=== PATIENT | male | born 1985 | race Caucasian/White ===

== ENCOUNTER → 2024-02-18 14:09 | Outpatient (REF) | payer OTHER, SELFPAY ==
[2024-02-18 14:10] LABS: % Eosinophils 3.1 % (0-6); % Immature Granulocytes 0.2 % (0-0.5); % Lymphocytes 28.7 % (20.5-51.1); % Monocytes 14.3 % (1.7-9.3); % Neutrophils 52.7 % (42.2-75.2); Absolute Basophils 0.1 10^3/uL (0-0.2); Absolute Eosinophils 0.2 10^3/uL (0-0.7); Absolute Lymphocytes 1.8 10^3/uL (1.2-3.4); Absolute Monocytes 0.9 10^3/uL (0.1-0.6); Absolute Neutrophils 3.3 10^3/uL (1.4-6.5); Hematocrit 28.1 % (39.0-52.0); Mean Corp Hgb Conc. 28.5 g/dL (33.0-37.0); Mean Corpuscular Hgb 18.8 pg (27.0-31.0); Mean Platelet Volume 8.3 fL (7.4-10.4); Nucleated Red Blood Cells % 0 % (-); Platelet Count 441 10^3/uL (130-400); Red Blood Cell Count 4.26 10^6/uL (4.70-6.10); Red Cell Dist. Width 17.6 % (11.5-14.5); White Blood Cell Count 6.2 10^3/uL (4.8-10.8)
== END ==
LOC: OIDL 14:09
PROVIDERS: ATTENDING PHYSICIAN Nurse Practitioner Adult Health
DX: D50.9 Iron deficiency anemia, unspecified (principal)
CPT/HCPCS: 85025

== ENCOUNTER 2024-03-13 21:48 | Inpatient (IN) | payer OTHER, SELFPAY ==
[2024-03-13 11:27] VITALS: BP 153/93
[2024-03-13 12:00] LABS: % Basophils 0.4 % (0-2); % Immature Granulocytes 0.5 % (0-0.5); % Lymphocytes 8.2 % (20.5-51.1); % Monocytes 18.8 % (1.7-9.3); % Neutrophils 72.1 % (42.2-75.2); Absolute Immature Granulocytes 0.1 10^3/uL (0-0.05); Absolute Lymphocytes 0.8 10^3/uL (1.2-3.4); Absolute Monocytes 1.8 10^3/uL (0.1-0.6); Absolute Neutrophils 6.7 10^3/uL (1.4-6.5); Hematocrit 39.8 % (39.0-52.0); Hemoglobin 12.5 g/dL (13.0-18.0); Mean Corp Hgb Conc. 31.4 g/dL (33.0-37.0); Mean Corpuscular Hgb 22.8 pg (27.0-31.0); Mean Corpuscular Volume 72.5 fL (80.0-94.0); Mean Platelet Volume 8.5 fL (7.4-10.4); Nucleated Red Blood Cells % 0 % (-); Platelet Count 319 10^3/uL (130-400); Red Blood Cell Count 5.49 10^6/uL (4.70-6.10); Red Cell Dist. Width 26.8 % (11.5-14.5); White Blood Cell Count 9.3 10^3/uL (4.8-10.8)
[2024-03-13 12:11] LABS: ALT (SGPT) 31 U/L (0-50); AST (SGOT) 24 U/L (17-59); Alkaline Phosphatase 106 U/L (38-126); Blood Urea Nitrogen 11 mg/dl (9-20); Calcium 9.1 mg/dl (8.4-10.2); Carbon Dioxide 27 mmol/L (22-30); Chloride 88 mmol/L (98-107); Glucose 123 mg/dl (70-99); Potassium 4.3 mmol/L (3.5-5.1); Sodium 126 mmol/L (135-145); Total Bilirubin 0.8 mg/dl (0.2-1.3); Total Protein 7.3 g/dl (6.3-8.2); eGFR > 60.00
[2024-03-13 12:42] LABS: Normal RBC Morphology No
[2024-03-13 12:43] LABS: Anisocytosis 1+
[2024-03-13 12:44] LABS: Ovalocytes Slight; Tear Drop Red Blood Cells Slight; Vacuolated Segs 1+
--- NOTE | 2024-03-13 15:07 | ED.GENMED ---
History of Present Illness
General
Chief Complaint: Bowel Problem
Source: patient
Exam Limitations: none
Time Seen by Provider: 03/13/24 15:07
Nursing documentation reviewed up to this point in time: agreed with
Travel History
Have you had any contact with someone who has COVID-19?: No
Do you have any symptoms of coronavirus? Fever > 100 degrees, chills, cough, shortness of breath, sore throat, loss of taste or smell, muscle aches, or headache?: No
History of Present Illness
History of Present Illness:
38-year-old male with history of ulcerative colitis presents to the ER for evaluation. Patient reports for the past 5 days he has had watery diarrhea at times bloody. He also had fevers up to 103.5. Patient complains abdominal cramping. He does
feel dehydrated. He was diagnosed with ulcerative colitis about 3 years ago via CAT scan and flexible sigmoidoscopy. He did see GI not associate with this hospital but wanted to try and natural remedies and did not take prescribed indication for
ulcerative colitis he currently is in the process of trying to make an appoint with a new GI physician. He denies any nausea/vomiting.
Past History
Past History
ED Past Medical History: None
ED Past Surgical History: None
Social History
Tobacco: Non-smoker
Alcohol: None
Drug: None
Personal:
Living: with family
Employment: Employed
Family History
Family History: Other (No IBS history)
Review of Systems
Review of Systems
Allergies reviewed?: Yes
All Other Systems: ROS reviewed and negative except as documented in HPI and ROS
Constitutional: Reports fever
Respiratory: Reports no symptoms
Cardiac: Reports no symptoms
ABD/GI: Reports abdominal pain, diarrhea and bloody stools; Denies nausea or vomiting
: Reports no symptoms
Musculoskeletal: Reports no symptoms
Skin: Reports no symptoms
Neurological: Reports no symptoms
Psychiatric: Reports no symptoms
Phy Exam
General Physical Exam
General Presentation: no apparent distress
General age: appears stated age
General Skin: warm and dry
General Habitus: normal
General Mental: alert
General Hydration: appears well hydrated
Gastrointestinal Exam
Gastrointestinal Exam: non tender and soft
Neurological Exam
Neurological Exam: alert and oriented x3
Course
Orders/Labs/Results
Orders:
Orders
03/13/24 11:37
CBC/With Diff [Complete Blood Count/With Diff] Urgent
CMP [Comprehensive Metabolic Panel] Urgent
03/13/24 15:21
CT Abd/pel W Iv And Oral Contr Urgent
Comment:
Reason For Exam: abd pain , bloody diarrhea hx of UC + fever
Iohexol [Omnipaque] See Protocol PO NOW STA
03/13/24 15:22
0.9% Sodium Chloride 1000 ml [Nss] 1,000 ml IV BOLUS
03/13/24 15:47
Lactic Acid Urgent
Blood Culture Q30M
[place] Source: Blood/Venous
Specimen Description:
Blood Culture Q30M
[place] Source: Blood/Venous
Specimen Description:
03/13/24 16:14
C difficile Antigen & Toxins Urgent
[place] Source: ST
Specimen Description:
Time Specimen was Collected: 16:12
Giardia/Cryptosporidium Ag Urgent
[place] Source: ST
Specimen Description:
Time Specimen was Collected: 16:12
Stool Culture Urgent
[place] Source: Feces/Stool
Specimen Description:
Date Specimen was Collected: 03/13/24
Time Specimen was Collected: 16:12
03/13/24 19:25
Add On - Microbiology Urgent
Tests Added?: c-diff, giardia/cryptosporidium Ag
03/13/24 21:02
Admit/Transfer Patient As Directed
Co-Sign Provider:
Level of Care: Inpatient admission
Assign to:: Telemetry
Physician / Group: Fernando
Diagnosis: Colitis / IBD / Hyponatremia
Reason for Telemetry: Arrhythmia
Date to Stop Telemetry: 03/16/24
Time to Stop Telemetry: 11:00
Reason for Hospitalization: Colitis / IBD / Hyponatremia
Expected length of stay greater than two midnights?: Yes
ELOS- Estimated Length of Stay in days: 3
I certify the patient meets the requirements for IP care: Yes
Code Status As Directed
Resuscitation Status: Full Code
03/13/24 22:07
0.9% Sodium Chloride 1000 ml [Nss] 1,000 ml IV 100 mls/hr
Acetaminophen [Tylenol] 650 mg PO Q4HPRN PRN
HYDROmorphone [Dilaudid] 0.5 mg IV Q4HPRN PRN
Ondansetron Injectable [Zofran] 4 mg IV Q6HPRN PRN
03/13/24 22:07
GASTROINTESTINAL CONSULT Routine
Consulting Provider: Aundrea Reyez
Was physician already notified: Yes
Reason for consult: Colitis / IBD
CRP [C-Reactive Protein] Routine
ESR [Erythrocyte Sed Rate] Routine
TSH Reflex To Free T4 Routine
Stool For WBC Routine
[place] Source: Feces/Stool
Specimen Description:
Date Specimen was Collected: 03/13/24
Time Specimen was Collected: 23:39
Activity As Directed
Activity Level: Ambulate
Bladder Scan As Directed
Follow Bladder Retention/Intermittent Cath Algorithm?: Yes
PRN if no void in __ hours: 6
Frequency: Per Retention Algorithm
If Bladder Scan Result >: 400
then:: Straight cath
I/O [Intake/ Output] As Directed
Frequency: Per unit guidelines
Orthostatic Vital Signs As Directed
Orthostatic VS Frequency: BID
Pneumatic Compression Sleeves As Directed
Type: Knee high
Records Request [Obtain Records] As Directed
Dates of Information to be Released: Most Recent
Type of Information Requested: Other
If Other, list type of info requested: Endoscopy Reports, Lab, Pathology Results
Obtain Records from: [facility]
Straight Cath As Directed
Frequency: Per Retention Algorithm
Additional Instructions: straight cath as needed per acute urinary retention algorithm for 24 hrs
Additional Instructions: for bladder scan greater than 400 mL
Vital Signs As Directed
Frequency: Per unit guidelines
Weight As Directed
Frequency: Daily
Oxygen Therapy [O2 Therapy] [RESP] Routine
Titrate/Wean O2 to maintain O2 sat greater than (%): 94
DX Deep Vein Thrombosis Video Routine
03/13/24 23:42
Calprotectin, Fecal [S] Routine
Date Specimen was Collected: 03/13/24
Time Specimen was Collected: 23:39
03/14/24 00:00
MetroNIDAZOLE 500 MG/100 ML [Flagyl 500 mg] 100 ml IV Q8H
03/14/24 Breakfast
Gluten Free
At Your Request: Full Participation
Fluid Restriction: 1200 mL/day (40 oz)
Gluten Free: Low Lactose
Basic Metabolic Panel IN AM
Complete Blood Count/No Diff IN AM
LFT [Qgoth-Qtxv-Ainfltn] IN AM
Magnesium IN AM
Phosphorus IN AM
03/14/24 08:00
Saccharomyces Boulardii [Florastor] 250 mg PO BID
03/16/24 11:00
DC Protocol for Telemetry ONCE
Abnormal Lab Results
03/13/24
11:37
Hgb 12.5 L g/dL
(13.0-18.0)
MCV 72.5 L fL
(80.0-94.0)
MCH 22.8 L pg
(27.0-31.0)
MCHC 31.4 L g/dL
(33.0-37.0)
RDW 26.8 H %
(11.5-14.5)
Abs Immat Gran (auto) 0.1 H 10^3/uL
(0-0.05)
Absolute Neuts (auto) 6.7 H 10^3/uL
(1.4-6.5)
Absolute Lymphs (auto) 0.8 L 10^3/uL
(1.2-3.4)
Absolute Monos (auto) 1.8 H 10^3/uL
(0.1-0.6)
Lymphocytes % 8.2 L %
(20.5-51.1)
Monocytes % 18.8 H %
(1.7-9.3)
Sodium 126 L mmol/L
(135-145)
Chloride 88 L mmol/L
(98-107)
Glucose 123 H mg/dl
(70-99)
03/13/24 11:37
03/13/24 11:37
Vital Signs
Initial and Last Documented VS:
Initial Vital Signs
Temp Pulse Resp BP Pulse Ox
99.7 F 128 16 153/93 100
03/13/24 11:27 03/13/24 11:27 03/13/24 11:27 03/13/24 11:27 03/13/24 11:27
Last Documented Vital Signs
Temp Pulse Resp BP Pulse Ox
98.3 F 115 14 119/72 99
03/13/24 22:15 03/13/24 22:15 03/13/24 22:15 03/13/24 22:15 03/13/24 22:15
MDM/Problems Addressed
Differential Diagnosis Includes:
Not limited to ulcerative colitis exacerbation, electrolyte abnormality, dehydration
MDM/Problems Addressed:
Patient is a 38-year-old male with past medical history of ulcerative colitis though not treated presents to the ER with 5 days of diarrhea at times bloody about every 1/2 hour. Patient does complain of some mild cramping. Patient presents
afebrile with a normal white count sodium was low at 126. Patient with normal renal function. CAT scan does show moderate to severe diffuse colonic wall thickening likely due to the given diagnosis of ulcerative colitis infectious colitis is
possible based on imaging findings alone. Culture sent. Case reviewed with GI, Dr. Reyez who does recommend admission. Patient was hydrated here in the ER
*Critical Care Note
Total Time (30-74mins, 75-104mins- exclusive of procedures): Not Applicable
ED Attending Note
-
Portions of this chart may have been created with voice recognition software.� Occasional wrong word or��sound alike� substitutions may have occurred due to the inherent limitations of voice recognition software.
Discharge Plan
Departure
Patient Disposition: Admit
Date of Disposition: 03/13/24
Time of Disposition: 20:15
Admit to: Med/Surg
Admit to doctor: hospitalist
Presentation/result/management discussed w/ accepting MD/DO: Hospitalist
Patient with high blood pressure during this ER visit?: Yes
Condition: Fair
Covid-19: Not Applicable
Discharge Problem:
Diarrhea, Acute hyponatremia
Interventions
Interventions:
*Risk Screen - Suicide Last Done: 03/13/24 11:27
*General Assessment Last Done: 03/13/24 11:27
*Neglect/Abuse Screening Last Done: 03/13/24 11:27
ED- Fall Risk Assessment Last Done: 03/13/24 16:25
*ED COVID-19 Vaccine History Last Done: 03/13/24 11:27
*Nursing Disposition Last Done: 03/13/24 22:04
KE-Lqxwxd-Uhjjkebphp Assessment Last Done: 03/13/24 16:25
Discharge Date and Time
Discharge Date/Time: 03/13/24 22:05
[2024-03-13 15:36] VITALS: BMI 20.3
[2024-03-13] MEDS: OMNIPAQUE 50 ML PO (15:37)
[2024-03-13] MEDS: NSS 1000 IV ×2 (15:38→22:26)
[2024-03-13 15:50] VITALS: BP 126/84
[2024-03-13 16:20] LABS: Lactic Acid 1.2 mmol/L (0.7-2.0)
[2024-03-13 17:29] VITALS: BP 123/76
--- NOTE | 2024-03-13 21:08 | HPS.HSE ---
Family Physician
-
Family Physician: Russel Nickerson, DO
Chief Complaint
-
Diarrhea, Fever
History of Present Illness
Patient is a 38y M with PMH significant for ulcerative colitis who presents to ED complaining of diarrhea, weakness and fever. Patient was initially seen with complaints of abdominal pain in 2019 and was diagnosed with ulcerative colitis shortly
thereafter. He notes that he wished to try natural remedies and has been doing so since that time. He has had frequent bouts of diarrhea / loose stools and occasional incontinence. He notes occasional blood in the stool. His weight has decreased
from 190 lbs at diagnosis to 145 lbs now.
Beginning on Wednesday, patient has noted an increased in bowel movements - stating that he has had a watery BM every 30-40 minutes or so, even during sleep. He notes that he ate at a few different restaurants near his work and wonders about a
possible food-borne illness. He does report some crampy, left-sided abdominal pain and has noted fevers at home - up to 103 at times.
Patient states that he has been trying to drink a lot of water to replace his GI losses.
He presented to the ED this evening with increased / worsening symptoms. He notes that he is interested in GI evaluation and beginning appropriate therapies for UC.
Patient maintains an organic, gluten-free and diary-free diet.
He notes that he was also exposed to PFAs as a child and was part of an [employer] study quantifying serum PFA levels.
He received an iron infusion on 02/18/24 for worsening anemia - presumably due to chronic GI losses / iron deficiency.
He notes that he has had endoscopies in the past (EGD and flex sig) at [facility].
Medical History
Past Medical History
Past Medical History: Reports Other
Additional Past Medical History:
Ulcerative Colitis
Past Surgical History: Reports None and Other
Social History
Tobacco: Non-smoker
Alcohol: None
Drug: None
Family History
Family History: Other (Mother and Brother have 'GI issues' but no formal diagnoses.)
Allergies / Home Medications
Allergies reflects when Allergies were last updated in [employer].
Home Medications with original date entered in [employer]
Allergy/Medication List:
Allergies
Allergy/AdvReac Type Severity Reaction Status Date / Time
No Known Allergies Allergy Unverified 08/14/20 10:10
Home Medications
Boiron Diaralia 2 tab PO DAILYPRN PRN diarrhea 03/13/24
Colloidal Silver Water 1 tsp PO .5-7/D 03/13/24
Lactobac no.2-Bifidobac no.1-S. thermo 112.5 billion cell capsule (Visbiome) 2 cap PO QPM 03/13/24
Review of Systems
-
History Source: Patient
A 12 point ROS was completed and negative except as noted: Yes
Constitutional: Reports Fever, Fatigue and Chills
EENT: Denies Sore Throat
Respiratory: Denies Cough or Trouble Breathing
Cardiac: Denies Chest Pain or Palpitations
Abdomen/GI: Reports Abdominal Pain, Diarrhea, Bloody Stools and Anorexia; Denies Nausea or Vomiting
: Denies Dysuria, Frequency or Flank Pain
Musculoskeletal: Denies Joint Pain or Edema
Neurological: Denies Dizzy or Headache
Psych: Denies Depression or Anxiety
Physical Exam
Vital Signs
Vital Signs
Temp Pulse Resp BP Pulse Ox
99.7 F 99 18 123/76 99
03/13/24 11:27 03/13/24 17:29 03/13/24 17:29 03/13/24 17:29 03/13/24 17:29
Physical Exam
General: Other (Thin 38y M in no acute distress.)
HEENT: Moist mucous membranes and PERRLA
Respiratory: Clear; No Wheezes, Rales or Rhonchi
Cardiac: S1/S2 and Regular Rhythm; No Murmur
GI: Soft, Non Distended, Normal Bowel Sounds and Other (Mildly tender along L abdomen. No rebound / guarding.)
Musculoskeletal: No Clubbing, No Cyanosis and No Edema
Neuro: AO x 3
Laboratory Results
-
03/13/24 11:37
03/13/24 11:37
Laboratory Results
Lactic Acid 1.2 mmol/L (0.7-2.0) 03/13/24 15:47
Total Bilirubin 0.8 mg/dl (0.2-1.3) 03/13/24 11:37
AST 24 U/L (17-59) 03/13/24 11:37
ALT 31 U/L (0-50) 03/13/24 11:37
Alkaline Phosphatase 106 U/L (38-126) 03/13/24 11:37
Impression/Plan
-
A/P: Patient is a 38y M with PMH significant for UC who presents to ED complaining of worsening diarrhea, abdominal pain and fever over the past 5-6 days.
Fever / Colitis
Ulcerative Colitis
- Admit for further evaluation and treatment.
- Likely component of ulcerative colitis activity given lack of formal treatments and chronicity of symptoms.
- Question acute infectious component given fevers and worsened symptoms over the past week.
- Supportive care with IVF replacement.
- IV abx for now.
- Check stool studies, cultures, calprotectin, etc.
- Check inflammatory markers.
- GI evaluation for additional recommendations / discussion of UC therapies.
- Follow for clinical improvement.
Hyponatremia
- Na = 126 on today's labs. No evident symptoms.
- Suspect this is primarily hypovolemic hyponatremia due to GI losses.
- Compounded by increased H2O intake to replace these losses.
- IVFs overnight and follow for changes in labs.
- Restrict free water intake PO.
- Consider Nephrology evaluation if no improvement.
Iron Deficiency Anemia
- Likely secondary to chronic GI losses.
- Hgb is Much improved today (8 --> 12.5) following iron infusion last month.
- Follow for any changes.
DVT Prophylaxis: SCDs
Code Status: Full
[2024-03-13 22:15] VITALS: BP 119/72; BMI 19.4
--- NOTE | 2024-03-13 22:15 | PTCARENOTE ---
Received pt from ED via stretcher. Pt ambulated to bed independently. AAOx3. Pt complained of pain on gum from brushing teeth, CHIEF DISPATCHER SERVICE made aware, new order provided, see MAR. HR elevated on ambulation, 120's-130's, no complaints of shortness of
breathe. Assessed and oriented to room. Pt verbalized understanding of call jenkins. Call jenkins within close reach. Will continue to monitor.
[2024-03-13] MEDS: FLAGYL 500 MG 100 IV (23:14)
[2024-03-13] MEDS: MAXIPIME 2000 MG IV (23:14)
[2024-03-13] MEDS: STERILE WATER FOR INJECTION 10 ML IV (23:14)
[2024-03-13 23:29] VITALS: BP 101/72; BP 108/74; BP 117/75; PULSE 106; PULSE 116; PULSE 138
[2024-03-14] VITALS (7 sets, daily range): BP systolic 100–120; BP diastolic 26–84; PULSE 90–123; BMI 19.3
--- NOTE | 2024-03-14 00:40 | PTCARENOTE ---
Addendum entered by Lavinia Cardona RN 03/14/24 02:28:
PHARMACY DATA ANALYST provided new lab orders. Pt instructed to use [facility]SC.
Original Note:
Tachy on ambulation, HR 130's-150's. Pt in bathroom. Asymptomatic. Pt back in bed, HR 90's-100's. PHARMACY DATA ANALYST made aware, no new orders provided. Will continue to monitor.
[2024-03-14 01:13] LABS: Erythrocyte Sed Rate 28 mm/hour (0-20)
[2024-03-14 01:25] LABS: Iron < 20 ug/dl (49-181)
[2024-03-14 01:34] LABS: Total Iron Binding Capacity 341 ug/dl (261-462)
[2024-03-14 01:55] LABS: Ferritin 91.6 ng/ml (17.9-464.0)
--- NOTE | 2024-03-14 03:51 | PTCARENOTE ---
Temperature elevated. Pt refused oral Tylenol, LOCKS TENDER made aware, new order provided, see DEC. Will recheck temperature.
[2024-03-14] MEDS: OFIRMEV 100 IV ×2 (04:43→20:13)
[2024-03-14 05:51] LABS: Hematocrit 33.1 % (39.0-52.0); Hemoglobin 10.6 g/dL (13.0-18.0); Mean Corpuscular Hgb 22.6 pg (27.0-31.0); Mean Corpuscular Volume 70.7 fL (80.0-94.0); Mean Platelet Volume 8.6 fL (7.4-10.4); Platelet Count 264 10^3/uL (130-400); Red Blood Cell Count 4.68 10^6/uL (4.70-6.10); Red Cell Dist. Width 27.1 % (11.5-14.5); White Blood Cell Count 9.3 10^3/uL (4.8-10.8)
[2024-03-14 07:12] LABS: ALT (SGPT) 19 U/L (0-50); AST (SGOT) 19 U/L (17-59); Blood Urea Nitrogen 11 mg/dl (9-20); Calcium 8.5 mg/dl (8.4-10.2); Carbon Dioxide 18 mmol/L (22-30); Chloride 95 mmol/L (98-107); Direct Bilirubin 0.4 mg/dl (0.0-0.4); Estimated Creatinine Clearance 92 ml/min; Glucose 95 mg/dl (70-99); Magnesium 1.8 mg/dl (1.6-2.3); Phosphorus 4.8 mg/dl (2.5-4.5); Sodium 127 mmol/L (135-145); Total Bilirubin 0.6 mg/dl (0.2-1.3); Total Protein 5.8 g/dl (6.3-8.2); eGFR > 60.00
[2024-03-14 07:17] LABS: Alkaline Phosphatase 87 U/L (38-126)
[2024-03-14] MEDS: FLAGYL 500 MG 100 IV ×3 (08:13→23:19)
[2024-03-14] MEDS: MAXIPIME 2000 MG IV ×3 (08:14→23:19)
[2024-03-14] MEDS: STERILE WATER FOR INJECTION 10 ML IV ×3 (08:14→23:19)
[2024-03-14] MEDS: NSS 1000 IV ×2 (08:15→18:13)
[2024-03-14] MEDS: FLORASTOR 250 MG PO ×2 (08:15→20:32)
[2024-03-14] MEDS: ORAJEL 10% GEL 1 APPLIC TOPICAL ×3 (08:19→20:26)
--- NOTE | 2024-03-14 08:53 | W.PN.HOSP.TC ---
Today's Communication/Plan
-
see bold
Assessment / Plan
Assessment / Plan
38y M with PMH significant for UC who presents to ED complaining of worsening diarrhea, abdominal pain and fever over the past 5-6 days.
Fever / Colitis
Ulcerative Colitis
-Patient had fever prior to admission, continue Flagyl and cefepime
-Appreciate GI input, follow-up stool studies, blood cultures
-GI recommends flex sig versus colonoscopy tomorrow
-Check Quantiferon Gold, hepatitis studies in anticipation for meds needed.
-Follow up appt made for patient 04/26/24 at 11:30 with Michelle ABBASI/Dr. Reyez in office.
Hyponatremia
- Suspect this is primarily hypovolemic hyponatremia due to GI losses.
- Compounded by increased H2O intake to replace these losses.
- IVFs overnight and follow for changes in labs.
- Restrict free water intake PO.
- Consider Nephrology evaluation if no improvement.
- TSH normal, will check free T4
Iron Deficiency Anemia
- Likely secondary to chronic GI losses.
- Hgb is Much improved today (8 --> 12.5) following iron infusion last month.
- Follow for any changes.
DVT Prophylaxis: SCDs
Code Status: Full
Physical Exam
General: No acute distress
HEENT: Normocephalic, Atraumatic, EOMI, MMM
Respiratory: Clear to Auscultation bilaterally
Cardiac: Normal S1/S2, Regular Rate and Rhythm
GI: Soft, tender at the left lower quadrant, Nondistended, Normal Bowel Sounds
Extremities: No Clubbing, Cyanosis, or Edema
Neuro: Nonfocal/Grossly Intact
Psych: Calm, Cooperative
Derm: No Visible lesions
Anticipated Discharge: 24 - 48 hours
Subjective/Interval History
-
Date of Service: March 14, 2024
No nausea, no vomiting. Continues to have diarrhea, intermittently bloody. Continues to have left lower quadrant pain, 4 out of 10 in intensity. No fever, no vomiting.
Objective Data
-
Labs:
Laboratory Results
03/14/24
05:32
WBC 9.3
Hgb 10.6 L
Hct 33.1 L
Plt Count 264
Sodium 127 L
Potassium 4.0
Chloride 95 L
Carbon Dioxide 18 L
BUN 11
Creatinine 1.0
Glucose 95
Calcium 8.5
Total Bilirubin 0.6
AST 19
ALT 19
Alkaline Phosphatase 87
Vital Signs:
Vital Signs
Temp Pulse Resp BP Pulse Ox
98.3 F 96 18 100/65 100
03/14/24 07:51 03/14/24 07:51 03/14/24 07:51 03/14/24 07:51 03/14/24 07:51
I&O
03/13/24 03/14/24 03/15/24
06:59 06:59 06:59
Intake Total 1120 / 1120
Balance 1120 / 1120
--- NOTE | 2024-03-14 09:19 | CON.GI ---
Addendum entered and electronically signed by Aundrea Reyez MD 03/14/24 17:00:
I saw and examined the patient.
The CULVERT INSTALLER or PA's note was reviewed and I agree with the note.
Comment: 38-year-old male with history of left-sided ulcerative colitis diagnosed in 2020 at [facility] and presented with bloody diarrhea, abdominal pain and weight loss and had upper endoscopy and sigmoidoscopy, was recommended mesalamine but
patient went on a gluten-free, dairy free, low FODMAP and organic diet and never started the mesalamine. Reports doing relatively well with about 6 bowel movements a day in the last few years but recently in the last few weeks, he has had multiple
episodes of diarrhea, up to 15 or 20, bloody and also fevers that is interrupting his quality of life and that is when he came to the emergency room. In the ER, he was noted to have microcytic anemia with elevated inflammatory markers and low
albumin. CT scan of the abdomen pelvis with IV and oral contrast showing moderate to severe diffuse colonic wall thickening from rectum to the cecum, multiple lymph nodes noted as well, likely reactive and distal ileal wall slightly thickened.
Reviewing CT scan from 2019, diffuse prominent lymph nodes in the abdominal mesentery noted, no bowel wall thickening but mildly distended gallbladder with sludge and splenomegaly noted at that time.
Stool for cultures pending, C. difficile, Cryptosporidium and Giardia negative and many stool white cells noted. Currently on broad-spectrum antibiotic with cefepime and metronidazole.
-History of ulcerative colitis diagnosed in 2020, questionable left-sided back pain but not on any medication now presenting with significant diarrhea and CT scan showing pancolitis.
Likely UC flare, less likely infectious.
Stool for cultures pending, other stool test negative for infection, white cells noted.
Will do colonoscopy tomorrow and take biopsies from the colon.
Okay for clear liquid diet but n.p.o. past midnight.
Stool cultures negative, will start him on steroids, initially IV to control symptoms followed by p.o. steroids prior to discharge.
Patient is agreeable for Biologics, await TB test and hepatitis panel in preparation for outpatient Biologic initiation.
Patient agreeable at this time.
Will follow-up
Addendum entered and electronically signed by ELROY Ocampo 03/14/24 10:05:
- Patient will need eventual EGD. Most likely as an outpatient for intermittent/rare dysphagia to certain solid foods and pills.
Original Note:
Consultation
-
Date/Time Consultation Requested: 03/13/242206
Date/Time Consultation Performed: 03/14/24 0850
Requesting Provider: Dr. King
Performing Provider: Dr. Reyez/ELROY Suarez
Reason for Consultation: diarrhea/fever
Medical History
Chief Complaint / HPI
Chief Complaint: fevers, bloody diarrhea
History of Present Illness:
38-year-old male with past medical history of ulcerative colitis diagnosed in July 2020 with ER admission with CT initially and then follow-up with [facility] in [place], had a flex sigmoidoscopy in 2020 that per patient showed mild to moderate
ulcerative colitis. The patient was asked to go on mesalamine however never took this and never followed up. The patient decided to do a more holistic regimen and went gluten-free, dairy free, no alcohol, started 'slippery elm', and silver fern
probiotic cleanse regimen. The patient states since that time he has usual bowel regimen is usually 6-12 soft to loose bowel movements daily. Approximately once a week he will see some blood mixed in with his stools. He states once a month he
will have a flare like episode of bloody stools mixed in with loose stools for couple days. He he will have joint pains in his knees however this improved after he got IV iron infusions in January. He was found to have iron deficiency and went to
[facility] and saw the nurse practitioner there and got iron infusion on 02/17/2023. He was to follow-up for repeat labs at this time. The patient denies any rashes, eye irritation or mouth ulcers. He does have intermittent issues with
dysphagia associated with swallowing gluten-free bread, meats or pills. He states he did have an EGD at the time of his flex sig but he does not recall any abnormalities. The patient does not take any medications other than [id number]
supplements. He states that 5 days ago he started having bowel movements more often and then he started having bowel movements every 30 minutes with a fever up to 103.5. He also started having intermittent bloody diarrhea mixed with brown
diarrhea. Because of persistence of symptoms he came to the emergency room. He has had no sick contacts, no recent travel, no raw or spoiled food. He denies any nausea, vomiting, melena, odynophagia, early satiety or unintentional weight loss.
He has no family history of inflammatory bowel disease or GI malignancies.
Past Medical History
Past Medical History: Other (Ulcerative colitis diagnosed in [facility]/flex sig, iron deficiency anemia (iron infusion 02/17/2023))
Past Surgical History: Other (Dental implants)
Social History
Tobacco: Non-Smoker
Alcohol: None
Drug: None
Personal:
Living: With Family
Employment: Employed
Family History
Family History: Other (No family history of gastrointestinal malignancy or IBD)
Allergies / Home Medications
Allergy/AdvReac Type Severity Reaction Status Date / Time
No Known Allergies Allergy Unverified 08/14/20 10:10
�Medication �Instructions �Recorded
Boiron Diaralia 2 tab PO DAILYPRN PRN diarrhea 03/13/24
Colloidal Silver Water 1 tsp PO .5-7/D 03/13/24
Lactobac no.2-Bifidobac no.1-S. 2 cap PO QPM 03/13/24
thermo 112.5 billion cell capsule
(Visbiome)
Review of Systems
-
All other systems: A 12 pt ROS was Negative except as stated above in HPI
Vital Signs
Temp Pulse Resp BP Pulse Ox
98.3 F 96 18 100/65 100
03/14/24 07:51 03/14/24 07:51 03/14/24 07:51 03/14/24 07:51 03/14/24 07:51
Physical Exam
Exam
General: Other (Thin)
HEENT: Normocephalic and Anicteric
Respiratory: Clear
Cardiac: Regular Rhythm
GI: Soft, Non Distended, Normal Bowel Sounds and Tender (Mild tenderness mid upper abdomen)
Skin: Warm, Dry and Other (Pale)
Neuro: AO x 3
Psych: Calm
Results
WBC 9.3 10^3/uL (4.8-10.8) 03/14/24 05:32
Hgb 10.6 g/dL (13.0-18.0) L 03/14/24 05:32
Hct 33.1 % (39.0-52.0) L 03/14/24 05:32
MCV 70.7 fL (80.0-94.0) L 03/14/24 05:32
Plt Count 264 10^3/uL (130-400) 03/14/24 05:32
Absolute Neuts (auto) 6.7 10^3/uL (1.4-6.5) H 03/13/24 11:37
Sodium 127 mmol/L (135-145) L 03/14/24 05:32
Potassium 4.0 mmol/L (3.5-5.1) 03/14/24 05:32
Chloride 95 mmol/L (98-107) L 03/14/24 05:32
Carbon Dioxide 18 mmol/L (22-30) L 03/14/24 05:32
BUN 11 mg/dl (9-20) 03/14/24 05:32
Creatinine 1.0 mg/dL (0.7-1.3) 03/14/24 05:32
Calcium 8.5 mg/dl (8.4-10.2) 03/14/24 05:32
Total Bilirubin 0.6 mg/dl (0.2-1.3) 03/14/24 05:32
AST 19 U/L (17-59) 03/14/24 05:32
ALT 19 U/L (0-50) 03/14/24 05:32
Alkaline Phosphatase 87 U/L (38-126) 03/14/24 05:32
Diagnostic Image Results:
CT abdomen pelvis with IV and oral contrast:
IMPRESSION: Moderate to severe diffuse colonic wall thickening, which is likely due to the given clinical diagnosis of ulcerative colitis. Infectious colitis is possible based on imaging findings alone.
Numerous lymph nodes are seen throughout the abdomen and pelvis, which likely represents extensive reactive lymphadenopathy.
No evidence of free intraperitoneal air. No evidence for bowel obstruction.
There is mild distention of the mid transverse colon, measuring up to 6 cm.
Top normal splenic size, with maximum dimension of 13.0 cm.
Prior GI Procedures:
EGD: Per patient performed in 2020 with [facility] in [place]. Per patient okay.
Flex sig: Per patient performed in 2020 with GI and [place]. Mild to moderate ulcerative colitis. Told to start mesalamine. Never started did not follow-up with physicians.
Assessment / Plan
-
38-year-old male with past medical history of ulcerative colitis diagnosed in July 2020 with ER admission with CT initially and then follow-up with [facility] in [place], had a flex sigmoidoscopy in 2020 that per patient showed mild to moderate
ulcerative colitis. The patient was asked to go on mesalamine however never took this and never followed up. The patient decided to do a more holistic regimen and went gluten-free, dairy free, no alcohol, started 'slippery elm', and silver fern
probiotic cleanse regimen. The patient states since that time he has usual bowel regimen is usually 6-12 soft to loose bowel movements daily. Approximately once a week he will see some blood mixed in with his stools. He states that 5 days ago he
started having bowel movements more often and then he started having bowel movements every 30 minutes with a fever up to 103.5. He also started having intermittent bloody diarrhea mixed with brown diarrhea. Because of persistence of symptoms he
came to the emergency room. He has had no sick contacts, no recent travel, no raw or spoiled food. He denies any nausea, vomiting, melena, odynophagia, early satiety or unintentional weight loss. He has no family history of inflammatory bowel
disease or GI malignancies. WBC 9.3, hemoglobin 10.6, hematocrit 33.1, platelets 264, MCV 70.7, MCH 22.6, sodium 127, potassium 4.0, chloride 95, CO2 18, BUN 11, creatinine 1.0, lactic acid 1.2, ESR 28, CRP 168.4, albumin 3.0, TSH 1.10. Stool
negative for crypto, negative for Giardia, negative for C. difficile. Stool leukocytes pending. Stool pending for Salmonella, Campylobacter and Shiga toxin. Blood cultures x 2 pending.
Impression:
Diarrhea
Fevers
Iron deficiency anemia
Hyponatremia
Plan:
-Await pending stool studies (Campylobacter,Shigella, E. coli)
-Await pending blood cultures
-Patient currently on Flagyl and cefepime as per internal medicine
-CBC, CMP, INR in a.m.
-Clear liquid diet
-Plan on flex sig vs colonoscopy in a.m., prep added. Discussed with patient who is agreeable.
-Check Quantiferon Gold, hepatitis studies in anticipation for meds needed.
-Follow up appt made for patient 04/26/24 at 11:30 with Michelle ABBASI/Dr. Reyez in office.
Data Reviewed
-
CT Scan: Report Reviewed by me
Old Records: Reviewed
-
-
Thank you for consultation and allowing me to participate in the patient's care. Please call the vacuum conditioner operator GI physician during the after hours with any questions or concerns.
[2024-03-14 11:32] LABS: Hepatitis B Surface Antigen Negative (Negative)
[2024-03-14 11:50] LABS: Hepatitis B Core Ab, Total Negative (Negative); Hepatitis B Surface Antibody Negative; Hepatitis C Antibody Negative (Negative)
--- NOTE | 2024-03-14 12:12 | CM ---
Met with pt at bedside
Pt lives with his 18 yo daughter in a 2 story home
Independent, works FT, drives
DME - none
SNF/HH - denies past history
PCP - Dr Sherrie King
Pharm - [facility]
Has ride at d/c
Plan - anticipate home no needs
[2024-03-14] MEDS: DILAUDID 0.5 MG IV (15:24)
[2024-03-14] MEDS: GAVILAX 238 GM PO (17:23)
[2024-03-14] MEDS: MYLICON 80 MG PO ×2 (18:13→20:36)
--- NOTE | 2024-03-14 19:35 | PTCARENOTE ---
Temperature elevated and HR 110's-120's, pt refused oral Tylenol. DAIRY NUTRITION SPECIALIST made aware, new order provided, see DEC. Will recheck temperature.
[2024-03-15] VITALS (10 sets, daily range): BP systolic 15–117; BP diastolic 64–80; BMI 19.4
[2024-03-15] MEDS: NSS 1000 IV (05:25)
[2024-03-15 07:03] LABS: INR 1.39; PT 16.9 Sec (11.4-14.6)
[2024-03-15 07:09] LABS: Hematocrit 31.1 % (39.0-52.0); Hemoglobin 9.8 g/dL (13.0-18.0); Mean Corp Hgb Conc. 31.5 g/dL (33.0-37.0); Mean Corpuscular Hgb 22.6 pg (27.0-31.0); Mean Corpuscular Volume 71.7 fL (80.0-94.0); Mean Platelet Volume 8.6 fL (7.4-10.4); Platelet Count 249 10^3/uL (130-400); Red Blood Cell Count 4.34 10^6/uL (4.70-6.10); Red Cell Dist. Width 26.9 % (11.5-14.5); White Blood Cell Count 8.6 10^3/uL (4.8-10.8)
[2024-03-15] MEDS: ORAJEL 10% GEL 1 APPLIC TOPICAL (07:10)
[2024-03-15] MEDS: STERILE WATER FOR INJECTION 10 ML IV ×2 (07:10→15:01)
[2024-03-15] MEDS: MAXIPIME 2000 MG IV ×3 (07:10→23:59)
[2024-03-15] MEDS: FLORASTOR 250 MG PO ×2 (07:10→19:29)
[2024-03-15] MEDS: FLAGYL 500 MG 100 IV ×3 (07:10→23:59)
[2024-03-15] MEDS: MYLICON 80 MG PO ×4 (07:10→21:51)
[2024-03-15 07:21] LABS: Blood Urea Nitrogen 8 mg/dl (9-20); Calcium 8.1 mg/dl (8.4-10.2); Carbon Dioxide 19 mmol/L (22-30); Chloride 100 mmol/L (98-107); Estimated Creatinine Clearance 103 ml/min; Glucose 98 mg/dl (70-99); Potassium 3.9 mmol/L (3.5-5.1); Sodium 129 mmol/L (135-145); eGFR > 60.00
--- NOTE | 2024-03-15 07:24 | W.PN.HOSP.TC ---
Today's Communication/Plan
-
see bold
Assessment / Plan
Assessment / Plan
38y M with PMH significant for UC who presents to ED complaining of worsening diarrhea, abdominal pain and fever over the past 5-6 days.
Fever / Colitis
Ulcerative Colitis
-Patient has fever, last fever 102.9 on 03/14, continue Flagyl and cefepime
-Appreciate GI input, follow-up stool studies, blood cultures
-GI recommends flex sig versus colonoscopy today
-Check Quantiferon Gold, hepatitis studies in anticipation for meds needed.
-Follow up appt made for patient 04/26/24 at 11:30 with Michelle ABBASI/Dr. Reyez in office.
Hyponatremia
- Suspect this is primarily hypovolemic hyponatremia due to GI losses.
- Compounded by increased H2O intake to replace these losses.
- Consider Nephrology evaluation if no improvement.
- TSH normal, free T4 also normal
- Sodium improved at 129, continue IV fluids for now
Iron Deficiency Anemia
- Likely secondary to chronic GI losses.
- Hgb is Much improved today (8 --> 12.5) following iron infusion last month.
- Monitor hemoglobin, recommend continuing outpatient iron infusion
DVT Prophylaxis: SCDs
Code Status: Full
Total time spent to see the patient on the floor, examine the patient, review data and lab results, discuss treatment plan with patient, nursing staff around 35 minutes.
Physical Exam
General: No acute distress
HEENT: Normocephalic, Atraumatic, EOMI, MMM
Respiratory: Clear to Auscultation bilaterally
Cardiac: Normal S1/S2, Regular Rate and Rhythm
GI: Soft, tender at the left lower quadrant, Nondistended, Normal Bowel Sounds
Extremities: No Clubbing, Cyanosis, or Edema
Neuro: Nonfocal/Grossly Intact
Psych: Calm, Cooperative
Derm: No Visible lesions
Anticipated Discharge: 24 - 48 hours
Subjective/Interval History
-
Date of Service: March 15, 2024
Patient has abdominal tenderness. Having bloody stools. Also having fever. No vomiting.
Objective Data
-
Labs:
Laboratory Results
03/15/24
06:42
WBC 8.6
Hgb 9.8 L
Hct 31.1 L
Plt Count 249
PT 16.9 H
INR 1.39
Sodium 129 L
Potassium 3.9
Chloride 100
Carbon Dioxide 19 L
BUN 8 L
Creatinine 0.9
Glucose 98
Calcium 8.1 L
Vital Signs:
Vital Signs
Temp Pulse Resp BP Pulse Ox
98.6 F 85 15 98/66 100
03/15/24 03:14 03/15/24 03:14 03/15/24 03:14 03/15/24 03:14 03/15/24 03:14
I&O
03/14/24 03/15/24 03/16/24
06:59 06:59 06:59
Intake Total 1120 / 1120 5140 / 5140
Balance 1120 / 1120 5140 / 5140
[2024-03-15 07:49] LABS: Cortisol, Random 19.3 ug/dl
[2024-03-15] MEDS: SOLU-CORTEF 100 MG IV ×2 (12:11→19:29)
--- NOTE | 2024-03-15 14:10 | CM ---
Case management following for d/c planning
Chart reviewed
Colonoscopy today. IV antibiotics cont
CM will follow for d/c needs
Plan - anticipate home no needs when medically ready
[2024-03-15] MEDS: ORAJEL 10% GEL TOPICAL ×2 (17:07→21:57)
[2024-03-16 03:46] VITALS: BP 108/66
[2024-03-16 03:52] VITALS: BMI 19.5
[2024-03-16] MEDS: SOLU-CORTEF 100 MG IV ×3 (04:26→21:10)
[2024-03-16 05:43] LABS: Hematocrit 31.5 % (39.0-52.0); Hemoglobin 9.7 g/dL (13.0-18.0); Mean Corp Hgb Conc. 30.8 g/dL (33.0-37.0); Mean Corpuscular Hgb 22.6 pg (27.0-31.0); Mean Corpuscular Volume 73.3 fL (80.0-94.0); Mean Platelet Volume 8.7 fL (7.4-10.4); Platelet Count 244 10^3/uL (130-400); White Blood Cell Count 8.2 10^3/uL (4.8-10.8)
[2024-03-16 06:00] VITALS: BMI 19.5
[2024-03-16 06:38] LABS: Blood Urea Nitrogen 9 mg/dl (9-20); Calcium 8.2 mg/dl (8.4-10.2); Carbon Dioxide 22 mmol/L (22-30); Chloride 103 mmol/L (98-107); Estimated Creatinine Clearance > 125 ml/min; Glucose 119 mg/dl (70-99); Potassium 4.6 mmol/L (3.5-5.1); Sodium 133 mmol/L (135-145); eGFR > 60.00
[2024-03-16 07:30] VITALS: BP 105/69
[2024-03-16] MEDS: FLAGYL 500 MG 100 IV (07:57)
[2024-03-16] MEDS: ORAJEL 10% GEL TOPICAL ×3 (07:58→21:11)
[2024-03-16] MEDS: MYLICON 80 MG PO ×4 (07:58→21:10)
[2024-03-16] MEDS: STERILE WATER FOR INJECTION 10 ML IV ×2 (07:58)
[2024-03-16] MEDS: FLORASTOR 250 MG PO ×2 (07:58→21:10)
[2024-03-16] MEDS: MAXIPIME 2000 MG IV (07:58)
--- NOTE | 2024-03-16 08:02 | PN.CDI ---
CDI
- -
CDI:
Physician Documentation Request
Admit Date: 03/13/24 21:48
Dear Doctor Do,
Please review the following and provide your response in the progress notes.
Clinical Indicators:
Security Administrator, 03/14
#Chart reviewed due to consult pt weight loss.
#CBW: 142 lbs 3.2 oz BMI 19.3 03/14.
#...reports a 8-9 lb weight loss in past month reflective of 6% weight loss significant.
#Pt observed with temporal wasting and sunkin in orbital area.
With weight loss of > 5% in 1 month and < 75% estimated needs in 1 month
#...pt meets AND/ASPEN criteria for moderate protein calorie malnutriton of chronic illness.
Based on the information, which of the following most accurately represents the patient's nutritional status?
Moderate Protein Calorie Malnutrition of chronic illness
Other (please specify)
Dutton Criteria (ACP Hospitalist 2017)
2 or more criteria must be present for either
non severe or severe malnutrition
Note that the criteria differs related to the
presence of an acute or chronic illness
Chronic Illness
Energy Intake Non Severe: <75% for >1 month
Severe: <75% for >1 month
Weight Loss Non Severe: 5% over 1 month
7.5% over 3 months
10% over 6 months
20% over 1 year
Severe: >5% over 1 month
>7.5% over 3 months
>10% over 6 months
>20% over 1 year
Body Fat Non Severe: Mild Loss
Severe: Severe Loss
Muscle Mass Non Severe: Mild Loss
Severe: Severe Loss
Use of terms such as suspected, likely, concern for, or probable (associated with a specific diagnosis that is being evaluated, monitored, or treated as if it exists) are acceptable and can be coded in the inpatient setting, when documented at the
time of discharge.
Thank you,
Nely Garcia RN BSN CCDS
CDI Specialist
please contact via tiger text
Please use your independent medical judgment in providing your response.
--- NOTE | 2024-03-16 08:11 | PN.CDI ---
CDI
- -
CDI:
Physician Documentation Request
Admit Date: 03/13/24 21:48
Dear Doctor Do,
Please review the following and provide your response in the progress notes.
Clinical Indicators:
PN, 03/15
#Iron Deficiency Anemia
#- Likely secondary to chronic GI losses.
#- Hgb is Much improved today (8 --> 12.5) following iron infusion last month.
Colonoscopy, 03/15
Findings:
#...Inflammation was found in a continuous and circumferential pattern from the rectum to the transverse colon.
#...This was graded as Caballero Score 3 (severe, with spontaneous bleeding, ulcerations), and when compared to ...
Laboratory Tests
03/13/24 03/14/24 03/15/24
11:37 05:32 06:42
Hgb 12.5 L 10.6 L 9.8 L
Hct 39.8 33.1 L 31.1 L
03/16/24
05:32
Hgb 9.7 L
Hct 31.5 L
Based on the above and your clinical assessment, please clarify which of the following is the most likely type of anemia evaluated, monitored and/or treated?
Acute blood loss anemia with baseline iron deficiency anemia
Anemia of chronic disease - indicate if neoplastic disease, CKD or other
Chronic iron deficiency anemia due to blood loss
Other(please specify)
Use of terms such as suspected, likely, concern for, or probable (associated with a specific diagnosis that is being evaluated, monitored, or treated as if it exists) are acceptable and can be coded in the inpatient setting, when documented at the
time of discharge.
Thank you,
Nely Garcia RN BSN CCDS
CDI Specialist
please contact via tiger text
Please use your independent medical judgment in providing your response.
--- NOTE | 2024-03-16 08:36 | PN.CDI ---
CDI
- -
CDI:
Physician Documentation Request
Admit Date: 03/13/24 21:48
Dear Doctor Dereje,
Please review the following and provide your response in the progress notes.
Documentation states the patient was admitted with abdominal pain.
Clinical Indicators:
Colonoscopy, 03/15
#Findings:
#...Inflammation was found in a continuous and circumferential pattern from the rectum to the transverse colon.
#...This was graded as Caballero Score 3 (severe, with spontaneous bleeding, ulcerations), and ...
#Diagnosis Code(s): --- Professional ---
#...K51.00, Ulcerative (chronic) pancolitis without complications
Please provide additional specificity regarding the type of colitis:
Chronic Ulcerative Pancolitis - and any associated complications (bleeding, obstruction, fistula, abscess etc.)
Other - please specify
Use of terms such as suspected, likely, concern for, or probable (associated with a specific diagnosis that is being evaluated, monitored, or treated as if it exists) are acceptable and can be coded in the inpatient setting, when documented at the
time of discharge.
Thank you,
Nely Garcia RN BSN CCDS
CDI Specialist
please contact via tiger text
Please use your independent medical judgment in providing your response.
--- NOTE | 2024-03-16 08:49 | PN.CDI ---
CDI
- -
CDI:
Physician Documentation Request
Admit Date: 03/13/24 21:48
Dear Doctor Do,
Please review the following and provide your response in the progress notes.
Clinical Indicators:
PN, 03/15
#...complaining of worsening diarrhea, abdominal pain and fever over the past 5-6 days.
#Fever / Colitis
#Ulcerative Colitis
#-Patient has fever, last fever 102.9 on 03/14, continue Flagyl and cefepime
Selected Entries
03/14/24
03:00 03/14/24
03:41
Temp 100.5 F H 101.6 F H
Pulse 104
Please clarify which of the following most accurately describes the status of the patient's infection:
Sepsis, POA or evolved this admission
SIRS due to non-infectious source, (please specify with or without organ dysfunction)
Localized Infection Only, Without Systemic Illness
- indicate the site/source, such as UTI, pneumonia etc.
Other(please specify)
Sepsis
- Systemic manifestations of infection, with 2 or more SIRS criteria which include:
- Fever >100.4 degrees F or hypothermia < 96.8 degrees F
- Leukocytosis - WBC > 12,000 or leukopenia - WBC < 4,000 or > 10% bands
- Tachycardia > 90 beats per minute
- Tachypnea - RR > 20 breaths per minute or PaCO2 , 32mmHg
Source: Merck Manual 2013
- Indicate the known or suspected organism
- Indicate the known or suspected underlying infection, such as UTI, pneumonia or cellulitis
SIRS due to a non-infectious source
-Indicate the known or suspected etiology
Indicate if there is associated organ dysfunction, such as renal or respiratory failure
Use of terms such as suspected, likely, concern for, or probable (associated with a specific diagnosis that is being evaluated, monitored, or treated as if it exists) are acceptable and can be coded in the inpatient setting, when documented at the
time of discharge.
Thank you,
Nely Garcia RN BSN CCDS
CDI Specialist
please contact via tiger text
Please use your independent medical judgment in providing your response.
--- NOTE | 2024-03-16 08:52 | W.PN.UPDATE ---
Update Note
Progress Note Update
Clarification on diagnosis for this patient with history of ulcerative colitis.
Chronic active ulcerative pancolitis without any abscesses, fistulas.
--- NOTE | 2024-03-16 09:14 | PN.CDI ---
CDI
- -
CDI:
Physician Documentation Request
Admit Date: 03/13/24 21:48
Dear Doctor Do,
Please review the following and provide your response in the progress notes.
Clinical Indicators:
GI Consult, 03/14
#...with history of left-sided ulcerative colitis diagnosed in 2020 at [facility] and presented with bloody diarrhea,
#...recently in the last few weeks, he has had multiple episodes of diarrhea, up to 15 or 20, bloody
#...and also fevers that is interrupting his quality of life and that is when he came to the emergency room.
#-History of ulcerative colitis diagnosed in 2020, questionable left-sided back pain but not on any medication
#...now presenting with significant diarrhea and CT scan showing pancolitis.
#Likely UC flare, less likely infectious.
PN, 03/15
#Iron Deficiency Anemia
#- Likely secondary to chronic GI losses.
#- Hgb is Much improved today (8 --> 12.5) following iron infusion last month.
Colonoscopy, 03/15
Findings:
#...Inflammation was found in a continuous and circumferential pattern from the rectum to the transverse colon.
#...This was graded as Caballero Score 3 (severe, with spontaneous bleeding, ulcerations), and when compared to ...
Laboratory Tests
03/13/24 03/14/24 03/15/24
11:37 05:32 06:42
Hgb 12.5 L 10.6 L 9.8 L
Hct 39.8 33.1 L 31.1 L
03/16/24
05:32
Hgb 9.7 L
Hct 31.5 L
Based on the above and your clinical assessment, please clarify which of the following is the most likely type of anemia evaluated, monitored and/or treated?
Acute blood loss anemia with baseline iron deficiency anemia
Chronic iron deficiency anemia due to blood loss
Other(please specify)
Use of terms such as suspected, likely, concern for, or probable (associated with a specific diagnosis that is being evaluated, monitored, or treated as if it exists) are acceptable and can be coded in the inpatient setting, when documented at the
time of discharge.
Thank you,
Nely Garcia RN BSN CCDS
CDI Specialist
please contact via tiger text
Please use your independent medical judgment in providing your response.
--- NOTE | 2024-03-16 09:22 | W.PN.HOSP.TC ---
Addendum entered and electronically signed by Jesus Loaiza MD 03/16/24 15:31:
Stool studies positive for Salmonella, will change IV antibiotics to Bactrim.
Original Note:
Today's Communication/Plan
-
see bold
Assessment / Plan
Assessment / Plan
38y M with PMH significant for UC who presents to ED complaining of worsening diarrhea, abdominal pain and fever over the past 5-6 days.
Ulcerative Colitis
SIRS
-Appreciate GI input, status post colonoscopy 03/15 showing severe pancolitis ulcerative colitis, now worse
-Stool studies negative, started on IV steroids 03/15
-Clear liquid diet, advance as per GI
-Fever resolved, continue IV Flagyl and cefepime for now
-Follow up appt made for patient 04/26/24 at 11:30 with Michelle ABBASI/Dr. Reyez in office.
Hyponatremia
- Suspect this is primarily hypovolemic hyponatremia due to GI losses.
- Compounded by increased H2O intake to replace these losses.
- Consider Nephrology evaluation if no improvement.
- TSH normal, free T4 also normal
- Sodium improved at 133, was 126 upon admission, continue IV fluids for now
Acute blood loss anemia with baseline iron deficiency anemia
- Recommend continuing outpatient iron infusion
- Hemoglobin 9.7 today, was 9.8, was 12.5 upon admission
Moderate protein calorie malnutrition of chronic illness
-Encourage oral intake
DVT Prophylaxis: SCDs
Code Status: Full
Total time spent to see the patient on the floor, examine the patient, review data and lab results, discuss treatment plan with patient, nursing staff around 51 minutes.
Physical Exam
General: No acute distress
HEENT: Normocephalic, Atraumatic, EOMI, MMM
Respiratory: Clear to Auscultation bilaterally
Cardiac: Normal S1/S2, Regular Rate and Rhythm
GI: Soft, tender at the left lower quadrant, Nondistended, Normal Bowel Sounds
Extremities: No Clubbing, Cyanosis, or Edema
Neuro: Nonfocal/Grossly Intact
Psych: Calm, Cooperative
Derm: No Visible lesions
Anticipated Discharge: 24 - 48 hours
Subjective/Interval History
-
Date of Service: March 15, 2024
Objective Data
-
Labs:
Laboratory Results
03/15/24
06:42
WBC 8.6
Hgb 9.8 L
Hct 31.1 L
Plt Count 249
PT 16.9 H
INR 1.39
Sodium 129 L
Potassium 3.9
Chloride 100
Carbon Dioxide 19 L
BUN 8 L
Creatinine 0.9
Glucose 98
Calcium 8.1 L
Vital Signs:
Vital Signs
Temp Pulse Resp BP Pulse Ox
97.6 F 85 18 104/69 100
03/15/24 15:00 03/15/24 15:00 03/15/24 15:00 03/15/24 15:00 03/15/24 15:00
I&O
03/14/24 03/15/24 03/16/24
06:59 06:59 06:59
Intake Total 1120 / 1120 5140 / 5140
Balance 1120 / 1120 5140 / 5140
[2024-03-16 11:30] VITALS: BP 107/72; BP 114/87; BP 117/74; PULSE 71; PULSE 74; PULSE 87
[2024-03-16 15:29] VITALS: BP 114/78
[2024-03-16] MEDS: BACTRIM DS 800 MG/160 MG 1 TABLET PO (17:18)
--- NOTE | 2024-03-16 18:21 | W.PN.GI.CBS2 ---
Today's Communication / Plan
-
Plan:
-Started hydrocortisone 100 mg IV every 8 hours-seems to be improving. If no further bloody diarrhea, will start him on prednisone 60 mg a day tomorrow, to be continued for a week, taper it down by 10 mg a week until seen in the office.
-Noted Salmonella in stool culture, other stool studies negative
-Blood cultures negative
-Patient currently on Flagyl and cefepime-finish course during hospital stay for Salmonella in the stool but no need to continue as outpatient
-Okay to advance to low residue diet
-Await Quantiferon Gold, hepatitis studies negative
-Follow up appt made for patient 04/26/24 at 11:30 with Michelle ABBASI/Dr. Reyez in office.
Will check with insurance regarding initiating Biologics.
Assessment / Plan
-
38-year-old male with past medical history of ulcerative colitis diagnosed in July 2020 with ER admission with CT initially and then follow-up with [facility] in [place], had a flex sigmoidoscopy in 2020 that per patient showed mild to moderate
ulcerative colitis. The patient was asked to go on mesalamine however never took this and never followed up. The patient decided to do a more holistic regimen and went gluten-free, dairy free, no alcohol, started 'slippery elm', and silver fern
probiotic cleanse regimen. The patient states since that time he has usual bowel regimen is usually 6-12 soft to loose bowel movements daily. Approximately once a week he will see some blood mixed in with his stools. He states that 5 days ago he
started having bowel movements more often and then he started having bowel movements every 30 minutes with a fever up to 103.5. He also started having intermittent bloody diarrhea mixed with brown diarrhea. Because of persistence of symptoms he
came to the emergency room. He has had no sick contacts, no recent travel, no raw or spoiled food. He denies any nausea, vomiting, melena, odynophagia, early satiety or unintentional weight loss. He has no family history of inflammatory bowel
disease or GI malignancies. WBC 9.3, hemoglobin 10.6, hematocrit 33.1, platelets 264, MCV 70.7, MCH 22.6, sodium 127, potassium 4.0, chloride 95, CO2 18, BUN 11, creatinine 1.0, lactic acid 1.2, ESR 28, CRP 168.4, albumin 3.0, TSH 1.10. Stool
negative for crypto, negative for Giardia, negative for C. difficile. Stool leukocytes pending. Stool pending for Salmonella, Campylobacter and Shiga toxin. Blood cultures x 2 pending.
Impression:
Diarrhea
Fevers
Iron deficiency anemia
Hyponatremia
Flexible sigmoidoscopy 03/15- - Severe (Caballero Score 3) pancolitis ulcerative colitis,
worsened since the last examination. Biopsied.
Plan:
-Started hydrocortisone 100 mg IV every 8 hours-seems to be improving. If no further bloody diarrhea, will start him on prednisone 60 mg a day tomorrow, to be continued for a week, taper it down by 10 mg a week until seen in the office.
-Noted Salmonella in stool culture, other stool studies negative
-Blood cultures negative
-Patient currently on Flagyl and cefepime-finish course during hospital stay for Salmonella in the stool but no need to continue as outpatient
-Okay to advance to low residue diet
-Await Quantiferon Gold, hepatitis studies negative
-Follow up appt made for patient 04/26/24 at 11:30 with Michelle ABBASI/Dr. Reyez in office.
Will check with insurance regarding initiating Biologics.
Subjective
Subjective
Date of Service: March 16, 2024
Patient reports feeling significantly better today, no further bloody diarrhea, no abdominal pain or fevers or chills. On clear liquid diet and doing well.
Objective
Data Reviewed
Laboratory Data:
Laboratory Results
03/16/24 05:32
03/16/24 05:32
Laboratory Results
PT 16.9 Sec (11.4-14.6) H 03/15/24 06:42
INR 1.39 03/15/24 06:42
Phosphorus 4.8 mg/dl (2.5-4.5) H 03/14/24 05:32
Magnesium 1.8 mg/dl (1.6-2.3) 03/14/24 05:32
Total Bilirubin 0.6 mg/dl (0.2-1.3) 03/14/24 05:32
AST 19 U/L (17-59) 03/14/24 05:32
ALT 19 U/L (0-50) 03/14/24 05:32
Alkaline Phosphatase 87 U/L (38-126) 03/14/24 05:32
Vital Signs and I&O:
Vital Signs
Temp Pulse Resp BP Pulse Ox
98.2 F 81 16 114/78 100
03/16/24 15:29 03/16/24 15:29 03/16/24 15:29 03/16/24 15:29 03/16/24 15:29
I&O
03/15/24 03/16/24 03/17/24
06:59 06:59 06:59
Intake Total 5140 / 5140 900 / 900
Balance 5140 / 5140 900 / 900
Physical Exam
Physical Exam
GI: Soft and Non Tender (Some discomfort on palpation but no tenderness.)
[2024-03-16 23:00] VITALS: BP 102/66
[2024-03-17] MEDS: SOLU-CORTEF 100 MG IV (03:58)
[2024-03-17 05:32] LABS: Hematocrit 30.4 % (39.0-52.0); Hemoglobin 9.7 g/dL (13.0-18.0); Mean Corp Hgb Conc. 31.9 g/dL (33.0-37.0); Mean Corpuscular Hgb 22.6 pg (27.0-31.0); Mean Corpuscular Volume 70.9 fL (80.0-94.0); Mean Platelet Volume 8.5 fL (7.4-10.4); Platelet Count 318 10^3/uL (130-400); Red Blood Cell Count 4.29 10^6/uL (4.70-6.10); White Blood Cell Count 12.9 10^3/uL (4.8-10.8)
[2024-03-17 06:00] VITALS: BMI 19.2
[2024-03-17 06:45] LABS: Blood Urea Nitrogen 12 mg/dl (9-20); Calcium 8.8 mg/dl (8.4-10.2); Carbon Dioxide 22 mmol/L (22-30); Chloride 105 mmol/L (98-107); Estimated Creatinine Clearance 116 ml/min; Glucose 125 mg/dl (70-99); Potassium 5.1 mmol/L (3.5-5.1); Sodium 135 mmol/L (135-145); eGFR > 60.00
[2024-03-17 07:30] VITALS: BP 109/71
[2024-03-17] MEDS: FLORASTOR 250 MG PO (08:07)
[2024-03-17] MEDS: MYLICON 80 MG PO ×2 (08:07→12:51)
[2024-03-17] MEDS: BACTRIM DS 800 MG/160 MG 1 TABLET PO (08:07)
[2024-03-17] MEDS: ORAJEL 10% GEL TOPICAL (08:07)
--- NOTE | 2024-03-17 08:28 | W.PN.HOSP.TC ---
Today's Communication/Plan
-
Give IV iron
Discharge today
Assessment / Plan
Assessment / Plan
38y M with PMH significant for UC who presents to ED complaining of worsening diarrhea, abdominal pain and fever over the past 5-6 days.
Ulcerative Colitis
Sepsis secondary to Salmonella infection
-Appreciate GI input, status post colonoscopy 03/15 showing severe pancolitis ulcerative colitis, now worse
-Stool studies growing Salmonella, changed IV antibiotics to Bactrim to complete a 7-day course
-Started on IV steroids 03/15
-Tolerating low residue diet, medically stable for discharge on oral prednisone taper as per GI
-GI recommends slow taper, 60 mg x 1 week, 50 mg x 1 week, etc.
-Follow up appt made for patient 04/26/24 at 11:30 with Michelle ABBASI/Dr. Reyez in office.
Hyponatremia
- Suspect this is primarily hypovolemic hyponatremia due to GI losses.
- Compounded by increased H2O intake to replace these losses.
- Consider Nephrology evaluation if no improvement.
- TSH normal, free T4 also normal
- Sodium normalized at 135, was 126 upon admission
Acute blood loss anemia with baseline iron deficiency anemia
- Recommend continuing outpatient iron infusion
- Will give 1 dose of IV iron prior to discharge
- Hemoglobin 9.7 today, was 9.7, 9.8, was 12.5 upon admission
Moderate protein calorie malnutrition of chronic illness
-Encourage oral intake
DVT Prophylaxis: SCDs
Code Status: Full
Physical Exam
General: No acute distress
HEENT: Normocephalic, Atraumatic, EOMI, MMM
Respiratory: Clear to Auscultation bilaterally
Cardiac: Normal S1/S2, Regular Rate and Rhythm
GI: Soft, tender at the left lower quadrant, Nondistended, Normal Bowel Sounds
Extremities: No Clubbing, Cyanosis, or Edema
Neuro: Nonfocal/Grossly Intact
Psych: Calm, Cooperative
Derm: No Visible lesions
Anticipated Discharge: Today
Subjective/Interval History
-
Date of Service: March 17, 2024
Patient reports abdominal pain resolved. Bloody stools resolved. No fever. He tolerated his solids. He is eager for discharge.
Objective Data
-
Labs:
Laboratory Results
03/17/24
05:25
WBC 12.9 H
Hgb 9.7 L
Hct 30.4 L
Plt Count 318 D
Sodium 135
Potassium 5.1
Chloride 105
Carbon Dioxide 22
BUN 12
Creatinine 0.8
Glucose 125 H
Calcium 8.8
Vital Signs:
Vital Signs
Temp Pulse Resp BP Pulse Ox
97.8 F 66 16 109/71 100
03/17/24 07:30 03/17/24 07:30 03/17/24 07:30 03/17/24 07:30 03/17/24 07:30
I&O
03/16/24 03/17/24 03/18/24
06:59 06:59 06:59
Intake Total 900 / 900 720 / 720 480 / 480
Balance 900 / 900 720 / 720 480 / 480
--- NOTE | 2024-03-17 09:06 | W.PN.GI.CBS2 ---
Today's Communication / Plan
-
IV iron
Transition to oral pred, will need slow taper upon d/c
Close OP GI FU arranged for him to initiate OP biologics
Ok from GI perspective for hosp d/c today. Please call for questions
Assessment / Plan
-
38-year-old male with past medical history of ulcerative colitis diagnosed in July 2020 with ER admission with CT initially and then follow-up with [facility] in [place], had a flex sigmoidoscopy in 2020 that per patient showed mild to moderate
ulcerative colitis. The patient was asked to go on mesalamine however never took this and never followed up. The patient decided to do a more holistic regimen and went gluten-free, dairy free, no alcohol, started 'slippery elm', and silver fern
probiotic cleanse regimen. The patient states since that time he has usual bowel regimen is usually 6-12 soft to loose bowel movements daily. Approximately once a week he will see some blood mixed in with his stools. He states that 5 days ago he
started having bowel movements more often and then he started having bowel movements every 30 minutes with a fever up to 103.5. He also started having intermittent bloody diarrhea mixed with brown diarrhea. Because of persistence of symptoms he
came to the emergency room. He has had no sick contacts, no recent travel, no raw or spoiled food. He denies any nausea, vomiting, melena, odynophagia, early satiety or unintentional weight loss. He has no family history of inflammatory bowel
disease or GI malignancies. WBC 9.3, hemoglobin 10.6, hematocrit 33.1, platelets 264, MCV 70.7, MCH 22.6, sodium 127, potassium 4.0, chloride 95, CO2 18, BUN 11, creatinine 1.0, lactic acid 1.2, ESR 28, CRP 168.4, albumin 3.0, TSH 1.10. Stool
negative for crypto, negative for Giardia, negative for C. difficile. Stool leukocytes pending. Stool pending for Salmonella, Campylobacter and Shiga toxin. Blood cultures x 2 pending.
Impression:
Ulcerative pancolitis flare
Diarrhea
Fevers
Iron deficiency anemia
Hyponatremia
Flexible sigmoidoscopy 03/15- - Severe (Caballero Score 3) pancolitis ulcerative colitis,
worsened since the last examination. Biopsied.
Plan:
-Transition to oral prednisone 60mg today. Please d/c with rx for Pred 60mg x7 days, 50mg x7 days and etc until 10mg x7 days then stop
- He completed course of abx for salmonella in stool studies
- Tolerating low residue diet
- Await Quantiferon Gold, hepatitis studies negative
- IV iron x1 today
At this juncture ok from GI perspective for hosp d/c
Follow up appt made for patient 04/26/24 at 11:30 with Michelle ABBASI/Dr. Reyez in office.
Will check with insurance regarding initiating Biologics. He is agreeable to this and I discussed options
Subjective
Subjective
Date of Service: March 17, 2024
Reports no abd pain. Had 2 loose nonbloody BM at [facility] and 4am when vitals checked. Ate 90% of low residue diet this AM
Objective
Data Reviewed
Laboratory Data:
Laboratory Results
03/17/24 05:25
03/17/24 05:25
Laboratory Results
PT 16.9 Sec (11.4-14.6) H 03/15/24 06:42
INR 1.39 03/15/24 06:42
Phosphorus 4.8 mg/dl (2.5-4.5) H 03/14/24 05:32
Magnesium 1.8 mg/dl (1.6-2.3) 03/14/24 05:32
Total Bilirubin 0.6 mg/dl (0.2-1.3) 03/14/24 05:32
AST 19 U/L (17-59) 03/14/24 05:32
ALT 19 U/L (0-50) 03/14/24 05:32
Alkaline Phosphatase 87 U/L (38-126) 03/14/24 05:32
Vital Signs and I&O:
Vital Signs
Temp Pulse Resp BP Pulse Ox
97.8 F 66 16 109/71 100
03/17/24 07:30 03/17/24 07:30 03/17/24 07:30 03/17/24 07:30 03/17/24 07:30
I&O
03/16/24 03/17/24 03/18/24
06:59 06:59 06:59
Intake Total 900 / 900 720 / 720 480 / 480
Balance 900 / 900 720 / 720 480 / 480
Physical Exam
Physical Exam
GEN: No acute distress, conversant, pleasant
HEENT: anicteric, extraocular movements intact, clear oropharynx without exudates
GI: soft, non-distended, not tender to palpation, normal active bowel sounds, no hepatosplenomegaly
EXT: warm, well perfused, no edema bilaterally
NEURO: AAOx3, non-focal
--- NOTE | 2024-03-17 11:06 | W.DCSUMMARY ---
Discharge Summary
Discharge Data
Date of Admission: 03/13/24
Date of Discharge: 03/17/24
-
Pending Results: No
Hospital Course
Discharge diagnosis:
Ulcerative Colitis flare
Bloody diarrhea
Sepsis secondary to Salmonella infection
Acute hyponatremia
Acute blood loss anemia with baseline iron deficiency anemia
Moderate protein calorie malnutrition of chronic illness
Consults: GI
Procedures:
03/15/2024 colonoscopy: severe (Caballero Score 3) pancolitis ulcerative colitis
Hospital course:
38-year-old male with a past medical history of chronic iron deficiency anemia due to chronic GI blood loss, and ulcerative colitis was admitted for diarrhea, weakness, and fever. He was treated with IV cefepime and Flagyl. Stool cultures were
positive for Salmonella. He was transitioned to Bactrim to complete a 7-day course.
Patient was seen in conjunction with GI, and had colonoscopy, results as above. He was started on IV steroids. His abdominal pain resolved, bloody stools resolved. GI has cleared him for discharge on a very slow prednisone taper. He is to take
60 mg daily for 1 week, decrease by 10 every week.
Patient has acute blood loss anemia superimposed on chronic iron deficiency anemia. His hemoglobin was 12.5 upon admission, decreased to 9.8, and remained stable at 9.7. He gets outpatient IV iron infusion. He was given 1 dose of IV iron prior to
discharge. He can continue his outpatient IV iron infusions with his primary care doctor.
Patient had acute hyponatremia upon admission, sodium was 126. Suspect this is secondary to hypovolemic hyponatremia from GI losses. He was treated with IV fluids, his potassium normalized. His TSH, free T4, and a.m. cortisol were all normal.
Patient is medically stable and cleared by GI for discharge. He needs to follow-up with GI in the office as directed, as well as his primary care doctor in 1 week.
Disposition: Home with home care
Discharge planning: Required 39 minutes
Discharge Plan
-
Patient Disposition: Home (Routine Discharge)
Discharge Diagnosis/Procedures: Ulcerative colitis, acute blood loss anemia superimposed on iron deficiency anemia
Condition: Fair
Diet: Low Residue
Activity Restrictions/Additional Instructions:
Please take prednisone 60 mg daily for 1 week,
Then 50 mg daily for 1 week,
Then 40 mg daily for 1 week,
Then 30 mg daily for 1 week,
Then 20 mg daily for 1 week,
Then 10 mg daily for 1 week,
Then stop.
Follow-up with your primary care doctor 1 week, and GI in the office as directed.
Referrals:
Michelle Porter NP [Specified Professional Personl] - 04/26/24 11:30 am
Russel Nickerson DO [Family Provider] - in one week
Prescriptions:
New
prednisone 10 mg Tablet
See Rx Instructions .ROUTE .COMPLEX Qty: 150 0RF
Rx Instructions:
60 mg daily x7 days, 50 mg daily x7 days,
40 mg daily x7 days, 30 mg daily x7 days,
20 mg daily x7 days, 10 mg daily x7 days
sulfamethoxazole-trimethoprim [Bactrim DS] 800-160 mg tablet
1 tab PO BID 4 Days Qty: 8 0RF
Continued
Visbiome 112.5 billion cell Capsule
2 cap PO QPM
Patient Comments:
03/13/2024, Silver Fern Probiotic.
Boiron Diaralia tablet
2 tab PO DAILYPRN PRN (Reason: diarrhea)
Patient Comments:
03/13/2024, meltaway tablets.
Colloidal Silver Water
1 tsp PO .5-7/D
Discharge Orders:
Discharge Patient (As Directed); Ordered 03/17/24
Ordered By: Jesus Loaiza
Discharge Date and Time
Discharge Date/Time: 03/17/24 13:22
Print Language: HUNGARIAN
--- NOTE | 2024-03-17 11:06 | CM ---
Case management following for d/c planning
Chart reviewed, spoke with pt at bedside
Transitioning to oral steroids
Poss d/c today
Has ride home
Plan - anticipate home no needs
[2024-03-17] MEDS: FERRLECIT 110 MG IV (11:43)
[2024-03-17 12:00] VITALS: BP 106/71
[2024-03-17 17:00] LABS: Calprotectin, Fecal 1910 ug/g (<=49)
[2024-03-17 17:30] LABS: Quantiferon Mitogen minus NIL 1.65 IU/mL; Quantiferon NIL 0.45 IU/mL; Quantiferon Plus TB1 minus NIL -0.02 IU/mL (<=0.34); Quantiferon Plus TB2 minus NIL -0.06 IU/mL (<=0.34); Quantiferon TB Gold Plus Negative (Negative)
== END 2024-03-17 13:22 | disposition home or self-care (01) | DRG 385 ==
LOC: 3 WEST ACU 21:48
PROVIDERS: Emergency Medicine; Nurse Practitioner; ADMITTING PHYSICIAN Hospitalist; ATTENDING PHYSICIAN Family Medicine; CONSULT PHYSICIAN Internal Medicine Gastroenterology; EMERGENCY PHYSICIAN Emergency Medicine; FAMILY PHYSICIAN Student in an Organized Health Care Education/Training Program
PROC: 0DBE8ZX Excision of Large Intestine, Via Natural or Artificial Opening Endoscopic, Diagnostic (ICD-10-PCS; 2024-03-15)
DX: K51.00 Ulcerative (chronic) pancolitis without complications (principal); A02.1 Salmonella sepsis; D62 Acute posthemorrhagic anemia; E87.1 Hypo-osmolality and hyponatremia; E44.0 Moderate protein-calorie malnutrition
CPT/HCPCS: 88305; 74177; 80048; 80053; 82248; 82533; 82728; 83540; 83550; 83605; 83735; 83993; 84100; 84443; 85025; 85027; 85610; 85652; 86140; 86480; 86704; 86706; 86803; 87040; 87045; 87046; 87077; 87184; 87186; 87324; 87328; 87329; 87340; 87427; 87449; 88342; 89055; 96360; 99285; J2916; Q9967

== ENCOUNTER 2024-04-20 13:44 | Outpatient (RCR) | payer OTHER, SELFPAY ==
[2024-04-20 13:55] VITALS: BP 101/72
[2024-04-20] MEDS: INJECTAFER 265 MG IV (14:14)
[2024-04-20 14:19] LABS: % Basophils 0.1 % (0-2); % Immature Granulocytes 0.1 % (0-0.5); % Lymphocytes 10.1 % (20.5-51.1); % Monocytes 2.9 % (1.7-9.3); % Neutrophils 86.8 % (42.2-75.2); Absolute Lymphocytes 0.7 10^3/uL (1.2-3.4); Absolute Monocytes 0.2 10^3/uL (0.1-0.6); Absolute Neutrophils 5.9 10^3/uL (1.4-6.5); Hematocrit 36.2 % (39.0-52.0); Hemoglobin 11.5 g/dL (13.0-18.0); Mean Corp Hgb Conc. 31.8 g/dL (33.0-37.0); Mean Corpuscular Hgb 24.5 pg (27.0-31.0); Mean Platelet Volume 7.4 fL (7.4-10.4); Platelet Count 454 10^3/uL (130-400); Red Cell Dist. Width 24.5 % (11.5-14.5); White Blood Cell Count 6.8 10^3/uL (4.8-10.8)
[2024-04-20 14:52] VITALS: BP 117/69
[2024-04-20 16:04] LABS: Vitamin D, 25-OH*** < 12.8 ng/mL (30-80)
== END 2024-04-21 11:00 | disposition home or self-care (01) ==
LOC: OID 13:44
PROVIDERS: ATTENDING PHYSICIAN Internal Medicine Hematology & Oncology; FAMILY PHYSICIAN Student in an Organized Health Care Education/Training Program
DX: D50.9 Iron deficiency anemia, unspecified (principal); K51.90 Ulcerative colitis, unspecified, without complications
CPT/HCPCS: 36415; 82306; 85025; 96365; J1439

== ENCOUNTER 2024-05-01 13:47 | Outpatient (RCR) | payer OTHER, SELFPAY ==
[2024-05-01] MEDS: INJECTAFER 265 MG IV (14:16)
[2024-05-01 14:24] VITALS: BP 119/71
[2024-05-01 14:26] LABS: % Basophils 0.2 % (0-2); % Immature Granulocytes 0.2 % (0-0.5); % Lymphocytes 12.2 % (20.5-51.1); % Monocytes 3.1 % (1.7-9.3); % Neutrophils 84.3 % (42.2-75.2); Absolute Lymphocytes 0.7 10^3/uL (1.2-3.4); Absolute Monocytes 0.2 10^3/uL (0.1-0.6); Absolute Neutrophils 4.7 10^3/uL (1.4-6.5); Hematocrit 37.2 % (39.0-52.0); Hemoglobin 12.2 g/dL (13.0-18.0); Mean Corp Hgb Conc. 32.8 g/dL (33.0-37.0); Mean Corpuscular Hgb 26.2 pg (27.0-31.0); Mean Corpuscular Volume 79.8 fL (80.0-94.0); Mean Platelet Volume 7.7 fL (7.4-10.4); Nucleated Red Blood Cells % 0 % (-); Platelet Count 388 10^3/uL (130-400); Red Blood Cell Count 4.66 10^6/uL (4.70-6.10); Red Cell Dist. Width 24.6 % (11.5-14.5); White Blood Cell Count 5.6 10^3/uL (4.8-10.8)
[2024-05-01 14:45] VITALS: BP 104/64
[2024-05-01 17:05] LABS: Anisocytosis 1+; Hypochromasia 1+
[2024-05-01 17:11] LABS: Normal RBC Morphology No
== END 2024-05-03 10:42 | disposition home or self-care (01) ==
LOC: OID 13:47
PROVIDERS: ATTENDING PHYSICIAN Internal Medicine Hematology & Oncology; FAMILY PHYSICIAN Student in an Organized Health Care Education/Training Program
DX: D50.9 Iron deficiency anemia, unspecified (principal); K51.90 Ulcerative colitis, unspecified, without complications; K92.1 Melena
CPT/HCPCS: 84100; 85025; 96365; J1439

== ENCOUNTER 2024-12-06 13:42 | Outpatient (RCR) | payer OTHER, SELFPAY ==
[2024-12-06 13:50] VITALS: BP 110/76
[2024-12-06] MEDS: INJECTAFER 265 MG IV (14:18)
[2024-12-06 15:18] VITALS: BP 104/74
== END 2024-12-22 23:59 | disposition home or self-care (01) ==
LOC: OID 13:42
PROVIDERS: ATTENDING PHYSICIAN Nurse Practitioner Family; FAMILY PHYSICIAN Student in an Organized Health Care Education/Training Program
DX: D50.0 Iron deficiency anemia secondary to blood loss (chronic) (principal); K51.90 Ulcerative colitis, unspecified, without complications; D50.9 Iron deficiency anemia, unspecified
CPT/HCPCS: 96365; J1439

== ENCOUNTER 2025-02-16 13:58 | Outpatient (RCR) | payer OTHER, SELFPAY ==
[2025-02-07 14:37] VITALS: BP 105/66
[2025-02-07] MEDS: INJECTAFER 265 MG IV (14:56)
[2025-02-07 15:07] LABS: % Basophils 0.7 % (0-2); % Eosinophils 1.2 % (0-6); % Immature Granulocytes 0.1 % (0-0.5); % Lymphocytes 16.3 % (20.5-51.1); % Monocytes 9.2 % (1.7-9.3); % Neutrophils 72.5 % (42.2-75.2); Absolute Basophils 0.1 10^3/uL (0-0.2); Absolute Eosinophils 0.1 10^3/uL (0-0.7); Absolute Lymphocytes 1.1 10^3/uL (1.2-3.4); Absolute Monocytes 0.6 10^3/uL (0.1-0.6); Hematocrit 42.9 % (39.0-52.0); Hemoglobin 13.9 g/dL (13.0-18.0); Mean Corp Hgb Conc. 32.4 g/dL (33.0-37.0); Mean Corpuscular Hgb 29.3 pg (27.0-31.0); Mean Corpuscular Volume 90.5 fL (80.0-94.0); Mean Platelet Volume 7.7 fL (7.4-10.4); Platelet Count 409 10^3/uL (130-400); Red Blood Cell Count 4.74 10^6/uL (4.70-6.10); Red Cell Dist. Width 14.3 % (11.5-14.5); White Blood Cell Count 6.9 10^3/uL (4.8-10.8)
[2025-02-07 15:19] LABS: Phosphorus 4.5 mg/dl (2.5-4.5)
[2025-02-16 13:50] VITALS: BP 108/69
[2025-02-16] MEDS: INJECTAFER 265 MG IV (14:10)
[2025-02-16 14:46] VITALS: BP 100/58
== END 2025-02-19 10:00 | disposition home or self-care (01) ==
LOC: OID 13:58
PROVIDERS: ATTENDING PHYSICIAN Nurse Practitioner Family; FAMILY PHYSICIAN Student in an Organized Health Care Education/Training Program
DX: D50.0 Iron deficiency anemia secondary to blood loss (chronic) (principal); K51.90 Ulcerative colitis, unspecified, without complications; D50.9 Iron deficiency anemia, unspecified
CPT/HCPCS: 84100; 85025; 96365; J1439

== ENCOUNTER → 2025-05-29 16:21 | Outpatient (REF) | payer OTHER, SELFPAY | LOC: MRI 3T 16:21 | PROVIDERS: ATTENDING PHYSICIAN Internal Medicine Gastroenterology; FAMILY PHYSICIAN Student in an Organized Health Care Education/Training Program | DX: R74.8 Abnormal levels of other serum enzymes (principal) | CPT/HCPCS: 74183; A9575 ==